=== PATIENT | male | born 1950 | race Caucasian/White ===

== ENCOUNTER 2023-12-26 17:09 | Inpatient (IN) | payer MEDICARE, MEDICAID ==
[~2023-12-26] VITALS: Ht 175.3 cm; Wt 90.9 kg
[2023-12-26] MEDS: SODIUM CHLORIDE 0.9% 1,000 ML IVB ONE (18:15)
[2023-12-26 19:22] LABS: Basophils # (auto) 0.1 10 ^3/uL (0-0.2); Basophils % (auto) 1.3 % (0.0-2.0); Eosinophils # (auto) 0.1 10 ^3/uL (0-0.8); Eosinophils % (auto) 1.6 % (0.0-7.0); Hematocrit 43.1 % (41.0-53.0); Hemoglobin 14.4 g/dL (13.5-17.5); Lymphocytes # (auto) 2.2 10 ^3/uL (0.4-5.4); Lymphocytes % (auto) 23.7 % (10.0-50.0); Mean Corpuscular Hemoglobin 31.3 pg (28.0-32.0); Mean Corpuscular Hgb Conc. 33.5 g/dL (32.0-36.0); Mean Corpuscular Volume 93.5 fL (80.0-100.0); Monocytes # (auto) 0.8 10 ^3/uL (0-1.3); Neutrophils % (auto) 64.4 % (37.0-80.0); Nucleated Red Blood Cells % 0.1 %; Red Blood Cells 4.61 10^6/uL (4.5-5.90); Red Cell Distribution Width 14.5 % (11.8-14.3); White Blood Cell 9.2 10^3/uL (4.4-10.8)
[2023-12-26 19:37] LABS: INR 1.01 (0.9-1.15); Partial Thromboplastin Time 27.4 SEC (24.5-34.5); Prothrombin Time 10.7 sec (9.3-11.8)
[2023-12-26 19:44] LABS: Albumin 4.5 g/dL (3.2-4.8); Alkaline Phosphatase 77 U/L (46-116); Anion Gap 3 (5-15); Aspartate Aminotransferase 9 U/L (13-40); BUN/Creatinine Ratio 8.2 (10.0-20.0); Blood Urea Nitrogen 16 mg/dL (9-23); Calcium 9.5 mg/dL (8.5-10.1); Carbon Dioxide 23 mmol/L (20-30); Chloride 112 mmol/L (98-107); Glucose 114 mg/dL (74-106); Potassium 4.5 mmol/L (3.5-5.1); Sodium 138 mmol/L (136-145)
[2023-12-26 19:45] LABS: Bilirubin, Total 0.5 mg/dL (0.2-1.0); Total Protein 7.6 g/dL (5.7-8.2)
[2023-12-26 19:47] LABS: Alanine Aminotransferase < 9 U/L (7-40)
[2023-12-26 19:58] LABS: Lipase 33 U/L (12-53)
[2023-12-26] MEDS ORDERED: DOCUSATE SOD 100 MG CAP PO PRN (21:30)
[2023-12-26] MEDS ORDERED: ONDANSETRON HCL 4 MG/2 ML VIAL IV PRN (21:30)
[2023-12-26] MEDS ORDERED: ACETAMINOPHEN 325 MG TAB PO PRN (21:30)
[2023-12-26] MEDS: SODIUM CHLORIDE 0.9% 1,000 ML IV SCH (21:45)
[2023-12-26] MEDS ORDERED: MORPHINE SULFATE INJ 2 MG/ml SYRG IV PRN (23:45)
[2023-12-26] MEDS ORDERED: NITROGLYCERIN 0.4 MG SL TAB SL PRN (23:45)
[2023-12-27] VITALS (12 sets, daily range): BP systolic 137–146; BP diastolic 70–93; PULSE 69–95; RESP 16–20; TEMP 97.6–98; O2SAT 90–99
[2023-12-27] MEDS: ONDANSETRON HCL 4 MG/2 ML VIAL IV ONE (03:43)
[2023-12-27] MEDS: MORPHINE SULFATE 4 MG/ML SYR/VIAL IV ONE (03:43)
[2023-12-27] MEDS ORDERED: MORPHINE SULFATE INJ 2 MG/ml SYRG IV PRN (04:45)
[2023-12-27 07:04] LABS: Basophils # (auto) 0.1 10 ^3/uL (0-0.2); Basophils % (auto) 0.6 % (0.0-2.0); Eosinophils # (auto) 0.1 10 ^3/uL (0-0.8); Eosinophils % (auto) 0.5 % (0.0-7.0); Hematocrit 40.7 % (41.0-53.0); Lymphocytes # (auto) 1.4 10 ^3/uL (0.4-5.4); Lymphocytes % (auto) 13.2 % (10.0-50.0); Mean Corpuscular Hemoglobin 32.2 pg (28.0-32.0); Mean Corpuscular Hgb Conc. 34.5 g/dL (32.0-36.0); Mean Corpuscular Volume 93.4 fL (80.0-100.0); Neutrophils # (auto) 8.1 10 ^3/uL (1.6-8.6); Neutrophils % (auto) 76.7 % (37.0-80.0); Red Blood Cells 4.35 10^6/uL (4.5-5.90); Red Cell Distribution Width 14.3 % (11.8-14.3); White Blood Cell 10.6 10^3/uL (4.4-10.8)
[2023-12-27 07:21] LABS: Albumin 4.2 g/dL (3.2-4.8); Alkaline Phosphatase 75 U/L (46-116); Anion Gap 2 (5-15); Aspartate Aminotransferase 9 U/L (13-40); BUN/Creatinine Ratio 10.7 (10.0-20.0); Blood Urea Nitrogen 19 mg/dL (9-23); Carbon Dioxide 26 mmol/L (20-30); Chloride 111 mmol/L (98-107); Glucose 98 mg/dL (74-106); Sodium 139 mmol/L (136-145)
[2023-12-27 07:22] LABS: Bilirubin, Total 0.7 mg/dL (0.2-1.0); Total Protein 6.9 g/dL (5.7-8.2)
[2023-12-27 07:23] LABS: Alanine Aminotransferase < 9 U/L (7-40)
[2023-12-27] MEDS ORDERED: PNEUMOCOCCAL VACC POLYS 25 MCG/0.5 ML VIAL IM ONE (08:00)
[2023-12-27 08:50] LABS: Urine Bacteria FEW /hpf (None Seen); Urine Blood 3+ /uL (Negative); Urine Clarity Clear (Clear); Urine Color Straw (Yellow); Urine Mucus FEW (None Seen); Urine Protein, UAD TRACE (Negative); Urine Specific Gravity 1.007 (1.001-1.035); Urine Urobilinogen Normal (Negative); Urine WBC 3 /hpf (0 - 3); Urine pH 5.5 (5.0-9.0)
[2023-12-27 09:00] LABS: Amphetamine Screen, Urine Neg (NEGATIVE); Barbiturate Scree,Urine Neg (NEGATIVE); Benzodiazephine Screen, Urine Neg (NEGATIVE); Cannabinoid Screen, Urine Neg (NEGATIVE); Cocaine Screen, Urine Neg (NEGATIVE); Opiate Scree,Urine Neg (NEGATIVE); Phencyclidine Screen, Urine Neg (NEGATIVE)
[2023-12-27 10:21] LABS: Triglycerides 143 mg/dL (< 150)
[2023-12-27 10:22] LABS: LDL Cholesterol 116 mg/dL (< 100)
[2023-12-27 10:23] LABS: Cholesterol 163 mg/dL (< 200); HDL Cholesterol 32 mg/dL (40-59)
[2023-12-27] MEDS: AZITHROMYCIN 250 MG TAB PO SCH (11:02)
[2023-12-27 11:45] LABS: Free T4 (Free Thyroxine) 0.99 ng/dL (0.89-1.76)
[2023-12-27] MEDS: ALBUTEROL SULF 2.5 MG/0.5ML(0.5%) NEB SOLN NEB SCH (12:00)
[2023-12-27] MEDS: IPRATROPIUM BROM 0.5 MG/2.5ML INH SOL NEB SCH (12:00)
[2023-12-27] MEDS: HYDROcodone-ACET 5/325MG TAB PO PRN (16:57)
[2023-12-27] MEDS: SODIUM CHLORIDE 0.9% 1,000 ML IV ONE (18:02)
[2023-12-27] MEDS: MELATONIN 5 MG TAB PO SCH (21:31)
[2023-12-28] VITALS (8 sets, daily range): BP systolic 115–124; BP diastolic 69–81; PULSE 74–87; RESP 18–20; TEMP 97.6–98; O2SAT 95–100
[2023-12-28 08:02] LABS: Basophils # (auto) 0.1 10 ^3/uL (0-0.2); Basophils % (auto) 0.7 % (0.0-2.0); Eosinophils # (auto) 0.1 10 ^3/uL (0-0.8); Eosinophils % (auto) 0.5 % (0.0-7.0); Hematocrit 40.5 % (41.0-53.0); Hemoglobin 13.5 g/dL (13.5-17.5); Lymphocytes # (auto) 1.6 10 ^3/uL (0.4-5.4); Lymphocytes % (auto) 14.8 % (10.0-50.0); Mean Corpuscular Hemoglobin 31.5 pg (28.0-32.0); Mean Corpuscular Hgb Conc. 33.3 g/dL (32.0-36.0); Mean Corpuscular Volume 94.7 fL (80.0-100.0); Monocytes # (auto) 0.8 10 ^3/uL (0-1.3); Monocytes % (auto) 7.8 % (0.0-12.0); Neutrophils # (auto) 8.1 10 ^3/uL (1.6-8.6); Neutrophils % (auto) 76.2 % (37.0-80.0); Red Blood Cells 4.28 10^6/uL (4.5-5.90); Red Cell Distribution Width 14.3 % (11.8-14.3); White Blood Cell 10.6 10^3/uL (4.4-10.8)
[2023-12-28 08:13] LABS: Chloride 112 mmol/L (98-107); Potassium 4.1 mmol/L (3.5-5.1); Sodium 140 mmol/L (136-145)
[2023-12-28 08:14] LABS: Anion Gap 3 (5-15); Calcium 9.1 mg/dL (8.5-10.1); Carbon Dioxide 25 mmol/L (20-30)
[2023-12-28 08:19] LABS: BUN/Creatinine Ratio 10.5 (10.0-20.0); Blood Urea Nitrogen 16 mg/dL (9-23); Glucose 146 mg/dL (74-106)
[2023-12-28] MEDS ORDERED: PRED20TA2 PO (11:43)
[2023-12-28] MEDS ORDERED: AZIT-43 PO (11:43)
[2023-12-28] MEDS ORDERED: ALBU108A5 IN (11:44)
[2023-12-28] MEDS ORDERED: PNEUMOCOCCAL VACC POLYS 25 MCG/0.5 ML VIAL IM ONE (12:15)
[2023-12-28] MEDS: PNEUMOCOCCAL VACC POLYS 25 MCG/0.5 ML VIAL IM ONE (12:19)
[2023-12-30 09:06] LABS: Hepatitis B Surface Antigen Negative (Negative)
[2023-12-30 09:27] LABS: Hepatitis C Antibody Negative (Negative)
== END 2023-12-28 12:56 | disposition home or self-care (01) | DRG 190 ==
LOC: EDBD 17:09 → ER 17:09 → OVERFLOW 23:40 → EAST 12-27 03:52
PROVIDERS: ADMIT Internal Medicine Geriatric Medicine; ATTEND Neuromusculoskeletal Medicine & OMM
DX: J44.1 Chronic obstructive pulmonary disease with (acute) exacerbation (principal); N17.0 Acute kidney failure with tubular necrosis; R33.9 Retention of urine, unspecified; K57.90 Diverticulosis of intestine, part unspecified, without perforation or abscess without bleeding; D35.02 Benign neoplasm of left adrenal gland; E03.8 Other specified hypothyroidism; Z23 Encounter for immunization
CPT/HCPCS: 36415; 71045; 74176; 80048; 80053; 80061; 80307; 81001; 82088; 82306; 82533; 82607; 83036; 83605; 83690; 83835; 84244; 84439; 84443; 84484; 85025; 85610; 85730; 86803; 87040; 87070; 87205; 87340; 94640; G0378; J2405